=== PATIENT | male | born 1945 | race Caucasian/White ===

== ENCOUNTER 2017-12-04 05:32 | Day surgery (SDC) | payer OTHER, BC ==
[~2017-12-04] VITALS: Ht 175.3 cm; Wt 74.8 kg
--- NOTE | ~2017-12-04 | O ---
[facility] [place] [address] OPERATIVE REPORT Name: ANJEL HOLCOMB Room #: 150-8 [facility] M.R.#: [id number] Admission: 12/04/17 Attend Phys: Po Savage MD Discharge: Date of : 45 Report #: [id number] THIS REPORT FOR: //name// CC: Pedro Savage DATE OF SERVICE: 12/04/[address] Pedro Isidro and Dr. Po Savage. PREOPERATIVE DIAGNOSIS: Right inguinal hernia. POSTOPERATIVE DIAGNOSIS: Right inguinal hernia with a right cord lipoma. PROCEDURE: Right inguinal hernia repair with Prolene hernia system mesh and excision of a right cord lipoma. SURGEON: Po Savage MD. ANESTHESIA: Local IV sedation. DESCRIPTION OF PROCEDURE: The patient was brought to the operating room and placed on operative table in the supine position. Sequential compression devices were in place for DVT prophylaxis. There was no indication for preoperative antibiotics. The patient underwent IV sedation. The right inguinal area was prepped and draped in a sterile fashion. Skin and subcutaneous tissue were then infiltrated with 0.5% Marcaine and 1% Xylocaine in a 1:1 mixture. Right inguinal skin incision was then performed using #10 scalpel blade. Hemostasis obtained using electrocautery. Dissection was carried down through subcutaneous tissue, the external oblique fascia, which was then incised with a knife and opened with Metzenbaum scissors. The cord was elevated and held in place with Plato drain. The ilioinguinal nerve was identified, dissected free, injected with the local mixture and preserved. The cremasteric muscle fibers were then split in the direction of their fibers using clamp and electrocautery. An indirect inguinal hernia sac was not identified. There was a cord lipoma which was identified, dissected free, clamped, excised and tied with a 2-0 chromic tie. The floor was inspected and there was a moderate size direct inguinal hernia defect. The hernia sac was dissected free and incised just above the level of floor and reduced back through the floor. An extended Prolene hernia system mesh was then inserted through the floor and the underlay patch was then deployed in the preperitoneal space. Connector was left in the floor and the floor was then tightened around the connector using running 2-0 Prolene two layer shouldice repair. The overlay patch was then deployed into the inguinal canal and the overlay patch was secured to the pubic tubercle with a same running 2-0 Prolene suture. Mesh was secured superiorly [facility] [address] [place] [address] OPERATIVE REPORT Name: ANJEL HOLCOMB Room #: 150-8 [facility].R.#: [id number] Admission: 12/04/17 Attend Phys: Po Savage MD Discharge: Date of : 45 Report #: [id number] and at the connector using simple interrupted 2-0 Vicryl sutures and the mesh was then split and wrapped around the cord, secured to the inguinal ligament with simple interrupted 2-0 Vicryl suture. The cord and ilioinguinal nerve were then returned to the canal intact. The external oblique fascia was then closed using running 2-0 Vicryl suture. Sneha's fascia was then reapproximated using 3 simple interrupted 2-0 chromic sutures and the skin then closed with a running 4-0 subcuticular Vicryl stitch. The wound was then dressed with Mastisol, 1/2-inch Steri-Strips cut in half, Telfa, 4 x 4 gauze, sponge and tape. The patient was then taken to the recovery room awake, alert and in good condition. Estimated blood loss was approximately 5 mL and the patient tolerated procedure well. All sponge, lap and instrument counts correct x 2. By: [id number] Po Savage MD /nt
--- NOTE | ~2017-12-04 | H ---
[facility] [place] [address] HISTORY AND PHYSICAL Name: ANJEL HOLCOMB Room #: PRE [facility] M.R.#: [id number] Admission: Attend Phys: Po Savage MD Discharge: Date of : 45 Report #: [id number] THIS REPORT FOR: //name// CC: MARCELA VERGARA FAM unknown Po Savage DATE OF SERVICE: 12/04/[address] Po Savage and Dr. Marcela Vergara. DATE OF ADMISSION AND SURGERY: 12/04/2017. CHIEF COMPLAINT: Right groin bulge. HISTORY OF PRESENT ILLNESS: The patient is a 72-year-old very pleasant elderly white male who for about 9 months, started noticing a bulge in the right side. He states it has been getting progressively larger. He occasionally has some discomfort in that area. He had a normal colonoscopy about 9 months ago. Denies any recent changes in bowel or bladder habits. He had a left inguinal hernia repair with mesh about 25 years ago and had no postoperative problems with that. He recently saw Dr. Vergara who recommend surgical consultation. The patient has a history of Parkinson disease and has had several falls recently. He underwent some physical therapy for chronic back and neck pain, which is improved. PAST MEDICAL HISTORY: Tic disorder, glaucoma, hyperlipidemia, depression, ADHD, allergic rhinitis, chronic back pain, gastroesophageal reflux disease, hyperglycemia, chronic low back pain, depression, chronic neck pain, senile cataract with visual impairment. PAST SURGICAL HISTORY: Left inguinal hernia repair as above, tonsillectomy, vasectomy. MEDICATIONS: Amantadine 100 mg p.o. b.i.d., Lamictal 100 mg p.o. t.i.d., Prilosec 20 mg p.o. q. day, topiramate 25 mg 2 tablets b.i.d., Lexapro 20 mg tablets half tablet p.o. q. day, Lumigan ophthalmic solution 0.01% one drop to affected eye q. daily. Clonazepam 2 mg p.o. at bedtime. Pravastatin 80 mg p.o. q. day. Hydrocodone p.r.n Lidocaine patch. Sinemet 25/100 one tablet p.o. t.i.d., oxycodone p.r.n. ALLERGIES: SULFA CAUSES A RASH. ZOCOR CAUSES MYALGIA. FAMILY HISTORY: Mother with history of Parkinson disease, breast cancer, coronary artery disease. Father with history of colon cancer and coronary artery disease. Brother with history of coronary artery disease. Paternal [facility] [address] [place] [address] HISTORY AND PHYSICAL Name: ANJEL HOLCOMB Room #: PRE [facility].R.#: [id number] Admission: Attend Phys: Po Savage MD Discharge: Date of : 45 Report #: [id number] uncle with history of gastric cancer. Two brothers, both with coronary artery disease. SOCIAL HISTORY: , does not smoke or drink alcohol. He is retired. REVIEW OF SYSTEMS: Pertinent positives as above. Full review of systems as per the electronic medical record was reviewed by myself. PHYSICAL EXAMINATION: GENERAL: Well-developed, well-nourished, very pleasant elderly white male, in no acute distress. VITAL SIGNS: Stable. He is afebrile. Height was 5 feet 9 inches, weight is 172 pounds. HEENT: Sclerae nonicteric. He does have a right eyelid droop. Mucous membranes moist and pink. There is no axillary adenopathy. There is some spasm and tenderness of the posterior occipital and neck area. CHEST: Lungs clear to auscultation bilaterally. Normal excursion. CARDIOVASCULAR: Regular rate and rhythm. No murmurs, S3, S4, no PMI. ABDOMEN: Soft, flat, nontender, no palpable masses and no organomegaly. No abdominal wall hernias. GENITOURINARY: Normal scrotum, phallus and testes. There is a healed left inguinal hernia incision scar. Some moderate sized right inguinal hernia, which is partially reducible and slightly tender. EXTREMITIES: No clubbing, cyanosis or edema. IMPRESSION: A 72-year-old white male with a right inguinal hernia. I fully discussed with the patient the diagnosis, prognosis and treatment options and the risks and benefits of each. He states he understands and wished to proceed with surgery. PLAN: We will perform a right inguinal hernia repair with mesh under local IV sedation as an outpatient at [facility]. The procedure and its risks, benefits and possible complications including the use of mesh were fully discussed with the patient, he states he understands, agrees with proposed surgery. <ELECTRONICALLY SIGNED> By: Po Savage MD 12/03/17 [id number] Po Savage MD /nt
[~2017-12-04 05:32] MED LIST: AMANTADINE 100100 M1 PO; ARICEPT10 M1 PO; CENTRUM SILVER1 EAC2 PO; CLONAZEPAM 1 MG1 M1 PO; CO Q-10100 MG PO; EFFEXOR XR37.5 MG PO; FLOMAX0.4 MG PO; IRON325 PO; LAMICTAL100 MG PO; OMEPRAZOLE 20 M20 MG PO; PERCOCET PO; PRAVASTATIN SOD80 MG PO; SINEMET 25-1001 EAC1 PO; SUPER B COMPLE150 MG PO; TOPAMAX50 MG PO; VITAMIN D1000 UNI1 PO
[2017-12-04] MEDS ORDERED: HYDROCODONE-AP1 EAC6 PO (15:41)
== END 2017-12-04 16:20 | disposition home or self-care (01) ==
LOC: OR 05:32 → TBA 05:33 → OR 10:48
DX: K40.90 Unilateral inguinal hernia, without obstruction or gangrene, not specified as recurrent (principal); D17.6 Benign lipomatous neoplasm of spermatic cord; E78.5 Hyperlipidemia, unspecified; M54.5 Low back pain; G89.29 Other chronic pain; N40.0 Benign prostatic hyperplasia without lower urinary tract symptoms; K21.9 Gastro-esophageal reflux disease without esophagitis; G20 Parkinson's disease; M19.90 Unspecified osteoarthritis, unspecified site; F32.9 Major depressive disorder, single episode, unspecified; H40.9 Unspecified glaucoma; F41.9 Anxiety disorder, unspecified; Z87.891 Personal history of nicotine dependence; Z98.890 Other specified postprocedural states; Z98.52 Vasectomy status; Z88.2 Allergy status to sulfonamides; Z79.899 Other long term (current) drug therapy; Z79.891 Long term (current) use of opiate analgesic; Z80.0 Family history of malignant neoplasm of digestive organs; Z80.3 Family history of malignant neoplasm of breast; Z82.49 Family history of ischemic heart disease and other diseases of the circulatory system
CPT/HCPCS: 50010; 50101; 50386; 50417; 54111; 56524; 56525; 56526; 56528; 62110; 62850; 70005